=== PATIENT | female | born 1940 | race African-American/Black ===

== ENCOUNTER → 2020-04-23 | Day surgery (SDC) | payer MEDICARE, MEDICAID ==
[~2020-04-23] MED LIST: AMLODIPINE BESY10 MG PO; ARANESP25 MCG/1 M SUBQ; ASPIRIN EC325 M1 PO; CALCITRIOL0.5 MCG PO; CLARITIN10 MG PO; FLONASE 0.05%50 MCG NASAL; HYDRALAZINE 5050 MG PO; LASIX 80 MG TAB80 MG PO; MIRALAX17 GM PO; NON-ASPIRIN PA325 MG PO; NORCO5 PO; RENVELA800 MG PO; SYMBICORT80 MCG/4.1 INH; VITAMIN B-121000 MC3 PO; VITAMIN D3125 MC2 PO
[2020-04-23 14:36] LABS: CALCIUM 9.8 mg/dL (8.5-10.1); CREATININE 4.3 mg/dL (0.6-1.3); POTASSIUM 3.9 mmol/L (3.5-5.1)
[2020-04-23 14:55] LABS: HEMATOCRIT 24.1 % (37.0-47.0); HEMOGLOBIN 7.7 gm/dL (12.0-15.0); MCH 28.4 pg (26.0-34.0); MCV 88.9 fL (80.0-100.0); MPV 6.9 fl. (7.2-11.1); RBC 2.71 mil/uL (4.20-5.00); RDW-CV 17.1 % (10.5-14.5); WBC 10.1 thou/uL (4.0-11.0)
--- NOTE | 2020-04-24 08:56 | OP ---
[facility] [address] [place] [address] OPERATIVE REPORT Name: ALIYAH OSCAR Room: [facility] M.R.#: [id number] Admission: 04/23/20 Attend Phys: Gene Kim Discharge: Date of : 44 Report #: [id number] THIS REPORT FOR: cc: SONU BRYANT Physician not on staff ~ Gene Kim MD DATE OF SERVICE: 04/23/2020 PREOPERATIVE DIAGNOSIS: End-stage renal disease. POSTOPERATIVE DIAGNOSIS: End-stage renal disease. OPERATIONS: 1. Laparoscopic revision of peritoneal catheter with removal of obstructive material. 2. Laparoscopic omentopexy. SURGEON: Gene Kim MD ANESTHESIA: General. ESTIMATED BLOOD LOSS: Minimal. SPECIMEN: None. DESCRIPTION OF PROCEDURE: After informed consent was obtained, the patient was brought to the operating room and placed supine. SCDs were placed and working, preoperative antibiotics were administered, general anesthesia was induced. The abdomen was prepped and draped in the usual sterile fashion. A 5 mm incision was made in the left upper quadrant. A 5 mm trocar was placed under direct vision. Pneumoperitoneum was established. A left-sided 5 mm trocar was placed under direct vision. The omentum had plastered itself down into the pelvis against the abdominal wall, trapping the catheter. This was carefully peeled away. I then brought the omentum up to the right upper quadrant. Two 2-0 Vicryl sutures were placed using a PMI suture passer through the omentum and then back out through the skin. This completed the omentopexy. I then flushed the catheter and placed it back down to the pelvis. It flushed very easily with heparinized saline and drained easily as well. The ports were removed under direct vision. The skin was closed with 4-0 Monocryl. Incisions were dressed with Steri-Strips. COMPLICATIONS: [place] [address] OPERATIVE REPORT Name: ALIYAH OSCAR Room: [facility]#: [id number] Admission: 04/23/20 Attend Phys: Gene Kim Discharge: Date of : 44 Report #: [id number] DISPOSITION: The patient was taken to recovery in satisfactory condition. <ELECTRONICALLY SIGNED> By: Gene Kim MD 04/24/20 0856 [id number] Kim MD /nt
== END | disposition home or self-care (01) ==
LOC: M.SUR 05:42
PROVIDERS: ATTEND Surgery
DX: I12.0 Hypertensive chronic kidney disease with stage 5 chronic kidney disease or end stage renal disease (principal); N18.6 End stage renal disease; I48.91 Unspecified atrial fibrillation; J45.909 Unspecified asthma, uncomplicated; K21.9 Gastro-esophageal reflux disease without esophagitis; F32.9 Major depressive disorder, single episode, unspecified; Z98.890 Other specified postprocedural states; Z79.899 Other long term (current) drug therapy; Z79.01 Long term (current) use of anticoagulants; Z88.8 Allergy status to other drugs, medicaments and biological substances

== ENCOUNTER 2020-05-10 21:31 | Inpatient (IN) | payer MEDICARE, MEDICAID ==
[~2020-05-10] VITALS: Ht 160 cm; Wt 67.7 kg
[2020-05-10 21:47] VITALS: BP 176/62
[2020-05-10] MEDS ORDERED: OMEPRAZOLE 20 M20 M1 PO (21:53)
[2020-05-10 22:19] LABS: WBC 13.1 thou/uL (4.0-11.0)
[2020-05-10 22:20] LABS: ABSOLUTE BASOPHILS 0.1 thou/uL (0.0-0.2); ABSOLUTE EOSINOPHILS 0.3 thou/uL (0.0-0.7); ABSOLUTE LYMPHOCYTES 0.9 thou/uL (0.8-5.3); ABSOLUTE MONOCYTES 0.7 thou/uL (0.0-1.2); ABSOLUTE NEUTROPHILS 11.1 thou/uL (1.6-8.1); BASOPHILS 0.8 %; EOSINOPHILS 2.4 %; HEMATOCRIT 20.9 % (37.0-47.0); LYMPHOCYTES 6.5 %; MCH 26.9 pg (26.0-34.0); MCHC 31.1 g/dL (28.0-37.0); MCV 86.5 fL (80.0-100.0); MONOCYTES 5.3 %; NUCLEATED RBCS 0 /100WBC; PLATELET COUNT* 524 thou/uL (150-400); RBC 2.41 mil/uL (4.20-5.00); RDW-CV 17.7 % (10.5-14.5)
[2020-05-10 22:22] LABS: HEMOGLOBIN 6.5 gm/dL (12.0-15.0)
[2020-05-10 22:25] LABS: ANION GAP 8 mmol/L (7-16); BUN 22 mg/dL (7-18); CALCIUM 9.8 mg/dL (8.5-10.1); CHLORIDE 96 mmol/L (98-107); CO2 29 mmol/L (21-32); GLUCOSE 116 mg/dL (70-99); POTASSIUM 4.9 mmol/L (3.5-5.1); SODIUM 133 mmol/L (136-145)
[2020-05-10 22:29] LABS: ALBUMIN 1.8 g/dL (3.4-5.0); ALKALINE PHOSPHATASE 90 U/L (46-116); LIPASE 46 U/L (73-393); MAGNESIUM 2.3 mg/dL (1.8-2.4); SGOT 7 U/L (15-37); TOTAL BILIRUBIN 0.2 mg/dL (<0.1-1.0)
[2020-05-10 22:31] LABS: SGPT < 6 U/L (30-65)
[2020-05-10 23:26] LABS: ESR (SEDRATE) 110 mm/hr (0-30)
[2020-05-11 02:16] LABS: HEMATOCRIT 22.4 % (37.0-47.0)
[2020-05-11 02:33] VITALS: BP 169/69
[2020-05-11 03:00] VITALS: BP 164/66
[2020-05-11 08:00] VITALS: BP 161/63
--- NOTE | 2020-05-11 11:18 | EKG ---
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
[2020-05-11 12:00] LABS: MCH 27.5 pg (26.0-34.0); MCHC 31.7 g/dL (28.0-37.0); MCV 86.6 fL (80.0-100.0); MPV 6.8 fl. (7.2-11.1); RBC 2.27 mil/uL (4.20-5.00); RDW-CV 17.4 % (10.5-14.5); WBC 11.2 thou/uL (4.0-11.0)
[2020-05-11 12:05] LABS: HEMATOCRIT 19.7 % (37.0-47.0); HEMOGLOBIN 6.2 gm/dL (12.0-15.0)
[2020-05-11 12:17] VITALS: BP 170/63
[2020-05-11 14:59] VITALS: BP 175/59; BP 182/61; BP 190/66
[2020-05-11 21:00] VITALS: BP 180/78
[2020-05-11 22:51] LABS: HEMATOCRIT 25.1 % (37.0-47.0); HEMOGLOBIN 8.1 gm/dL (12.0-15.0)
[2020-05-12 00:12] VITALS: BP 170/57
[2020-05-12 04:00] VITALS: BP 173/62
[2020-05-12 08:00] VITALS: BP 148/57
[2020-05-12 10:50] LABS: HEMOGLOBIN 8.6 gm/dL (12.0-15.0); MCH 26.8 pg (26.0-34.0); MCV 83.8 fL (80.0-100.0); MPV 6.7 fl. (7.2-11.1); RBC 3.22 mil/uL (4.20-5.00); RDW-CV 18.2 % (10.5-14.5); WBC 9.3 thou/uL (4.0-11.0)
[2020-05-12 10:59] LABS: ALBUMIN 1.8 g/dL (3.4-5.0); ALKALINE PHOSPHATASE 93 U/L (46-116); ANION GAP 7 mmol/L (7-16); BUN 19 mg/dL (7-18); CALCIUM 9.4 mg/dL (8.5-10.1); CHLORIDE 96 mmol/L (98-107); CO2 28 mmol/L (21-32); CREATININE 5.2 mg/dL (0.6-1.3); GLUCOSE 99 mg/dL (70-99); MAGNESIUM 2.2 mg/dL (1.8-2.4); PHOSPHORUS* 3.4 mg/dL (2.5-4.9); POTASSIUM 4.1 mmol/L (3.5-5.1); SGOT 10 U/L (15-37); SGPT < 6 U/L (30-65); SODIUM 131 mmol/L (136-145); TOTAL BILIRUBIN 0.4 mg/dL (<0.1-1.0); TOTAL PROTEIN 6.3 g/dL (6.4-8.2)
[2020-05-12 12:00] VITALS: BP 176/66
[2020-05-12 16:13] VITALS: BP 146/42
[2020-05-12 21:00] VITALS: BP 167/67
[2020-05-13 02:30] VITALS: BP 162/65
[2020-05-13 05:57] VITALS: BP 167/68
[2020-05-13 08:10] LABS: ABSOLUTE BASOPHILS 0.1 thou/uL (0.0-0.2); ABSOLUTE EOSINOPHILS 0.5 thou/uL (0.0-0.7); ABSOLUTE LYMPHOCYTES 0.8 thou/uL (0.8-5.3); ABSOLUTE MONOCYTES 0.7 thou/uL (0.0-1.2); BASOPHILS 0.8 %; EOSINOPHILS 5.7 %; HEMATOCRIT 26.2 % (37.0-47.0); HEMOGLOBIN 8.6 gm/dL (12.0-15.0); LYMPHOCYTES 8.5 %; MCH 27.5 pg (26.0-34.0); MCHC 32.9 g/dL (28.0-37.0); MCV 83.5 fL (80.0-100.0); MONOCYTES 7.3 %; MPV 6.6 fl. (7.2-11.1); NUCLEATED RBCS 0 /100WBC; PLATELET COUNT* 501 thou/uL (150-400); POLYS 77.7 %; RBC 3.14 mil/uL (4.20-5.00); RDW-CV 18.4 % (10.5-14.5)
[2020-05-13 08:17] LABS: ALBUMIN 1.7 g/dL (3.4-5.0); ALKALINE PHOSPHATASE 89 U/L (46-116); ANION GAP 7 mmol/L (7-16); BUN 26 mg/dL (7-18); CALCIUM 9.4 mg/dL (8.5-10.1); CHLORIDE 96 mmol/L (98-107); CO2 28 mmol/L (21-32); CREATININE 6.3 mg/dL (0.6-1.3); GLUCOSE 75 mg/dL (70-99); MAGNESIUM 2.3 mg/dL (1.8-2.4); PHOSPHORUS* 4.1 mg/dL (2.5-4.9); POTASSIUM 4.3 mmol/L (3.5-5.1); SGOT 7 U/L (15-37); SGPT < 6 U/L (30-65); SODIUM 131 mmol/L (136-145); TOTAL BILIRUBIN 0.3 mg/dL (<0.1-1.0); TOTAL PROTEIN 5.9 g/dL (6.4-8.2)
[2020-05-13 14:43] VITALS: BP 167/68
[2020-05-13 15:34] VITALS: BP 167/68
== END 2020-05-13 16:05 | disposition home health service (06) | DRG 371 ==
LOC: M.ERS 21:31 → M.TBA-ER 05-11 00:46 → M.2W 05-11 00:46
PROVIDERS: Emergency Medicine; Internal Medicine; Internal Medicine Nephrology; ADMIT Internal Medicine; ATTEND Internal Medicine
PROC: 30233N1 Transfusion of Nonautologous Red Blood Cells into Peripheral Vein, Percutaneous Approach (ICD-10-PCS; principal; 2020-05-11)
PROC: 5A1D70Z Performance of Urinary Filtration, Intermittent, Less than 6 Hours Per Day (ICD-10-PCS; principal; 2020-05-11)
PROC: 5A1D70Z Performance of Urinary Filtration, Intermittent, Less than 6 Hours Per Day (ICD-10-PCS; 2020-05-13)
DX: K65.1 Peritoneal abscess (principal); E43 Unspecified severe protein-calorie malnutrition; N18.6 End stage renal disease; I12.0 Hypertensive chronic kidney disease with stage 5 chronic kidney disease or end stage renal disease; I48.91 Unspecified atrial fibrillation; D50.9 Iron deficiency anemia, unspecified; R09.02 Hypoxemia; K59.00 Constipation, unspecified; T14.8XXA Other injury of unspecified body region, initial encounter; J45.909 Unspecified asthma, uncomplicated; Z20.822 Contact with and (suspected) exposure to COVID-19; Z79.82 Long term (current) use of aspirin; Z79.899 Other long term (current) drug therapy; Z88.8 Allergy status to other drugs, medicaments and biological substances; Z99.2 Dependence on renal dialysis; Z68.26 Body mass index [BMI] 26.0-26.9, adult

== ENCOUNTER → 2020-05-26 | Day surgery (SDC) | payer MEDICARE, MEDICAID ==
[~2020-05-26] MED LIST changes: +OMEPRAZOLE 20 M20 M1 PO; +PROAIR HFA8.5 GM INH
--- NOTE | ~2020-05-26 | OP ---
[facility] [address] [place] [address] OPERATIVE REPORT Name: ALIYAH OSCAR Room: [facility]#: [id number] Admission: 05/26/20 Attend Phys: Gene Kim Discharge: Date of : 44 Report #: [id number] THIS REPORT FOR: cc: Physician not on staff Physician not on staff ~ Gene Kim MD DATE OF SERVICE: 05/26/2020 PREOPERATIVE DIAGNOSIS: End-stage renal disease. POSTOPERATIVE DIAGNOSIS: End-stage renal disease. OPERATION: Removal of tunneled intraperitoneal catheter. SURGEON: Gene Kim MD. ANESTHESIA: General. ESTIMATED BLOOD LOSS: Minimal. SPECIMEN: None. DESCRIPTION OF PROCEDURE: After informed consent was obtained, the patient was brought to the operating room and placed supine. SCDs were placed and working, preoperative antibiotics were administered, general anesthesia was induced. The abdomen was prepped and draped in the usual sterile fashion. I made an elliptical incision around the exit site. A cautery dissection was made around the catheter. I then made 2 counter incisions, 1 near the exit site and 1 at the internal cuff. Both the cuffs were freed up with electrocautery, freeing up the cuffs. The catheter then slid out very easily. Skin was then closed with a 4-0 Monocryl. Incisions were dressed with Steri-Strips. COMPLICATIONS: None. DISPOSITION: The patient was taken to recovery in satisfactory condition. By: [id number] Kim MD /rosalva
[2020-05-26 12:01] LABS: HEMOGLOBIN 9.7 gm/dL (12.0-15.0); MCH 26.5 pg (26.0-34.0); MCHC 31.2 g/dL (28.0-37.0); MCV 84.9 fL (80.0-100.0); MPV 7.4 fl. (7.2-11.1); RBC 3.65 mil/uL (4.20-5.00); RDW-CV 20.7 % (10.5-14.5); WBC 9.3 thou/uL (4.0-11.0)
[2020-05-26 12:07] LABS: CREATININE 4.2 mg/dL (0.6-1.3); POTASSIUM 4.9 mmol/L (3.5-5.1)
== END | disposition home or self-care (01) ==
LOC: M.SUR 05:26
PROVIDERS: ATTEND Surgery
DX: I12.0 Hypertensive chronic kidney disease with stage 5 chronic kidney disease or end stage renal disease (principal); N18.6 End stage renal disease; I48.91 Unspecified atrial fibrillation; J44.9 Chronic obstructive pulmonary disease, unspecified; D64.9 Anemia, unspecified; Z98.890 Other specified postprocedural states; Z79.899 Other long term (current) drug therapy; Z20.822 Contact with and (suspected) exposure to COVID-19; Z79.01 Long term (current) use of anticoagulants